=== PATIENT | male | born 1935 | race Caucasian/White ===

== ENCOUNTER 2016-11-23 01:45 | Day surgery (SDC) | payer MEDICARE, OTHER ==
[~2016-11-23] VITALS: Ht 182.9 cm; Wt 101.5 kg
[2016-11-23] VITALS (11 sets, daily range): BP systolic 124–157; BP diastolic 73–93; PULSE 50–92; RESP 13–24; O2SAT 94–98
[~2016-11-23 01:45] MED LIST: ALLO300T2 PO; ASPI-973 PO; ATOR40TA69 PO; CALC200T6 PO; CLOP75TA3 PO; ESOM20CA28 PO; EZET10TA PO; GLUC-123 PO; INSU100I18 SUBQ; INSU100V7 SUBQ; LISI-571 PO; MULT-666 PO; SOTA80TA PO; TAMS0.4C98 PO
[2016-11-23] MEDS: 0.9% Sodium Chloride 1,000 ML IV SCH ×4 (06:25→19:46)
[2016-11-23] MEDS ORDERED: CeFAZolin Inj 2 GM in IV Premix 1 EACH IV ONE (06:30)
[2016-11-23 06:46] LABS: BASOPHILS % (AUTO) 0.7 % (0-3); EOSINOPHILS % (AUTO) 3.7 % (0-5); Mean Corpuscular Hemoglobin 29.6 pg (27.0-35.0); Mean Corpuscular Volume 88.6 fL (81-100); NEUTROPHILS % (AUTO) 60.4 % (40-74); Platelet Count 155 bil/L (150-400)
--- NOTE | 2016-11-23 07:14 | NUR ---
0600 admit note: Patient ambulates into department with . Their questions are answered and he is prepped for pacemaker implant. IV's X 2 started and labs are drawn.
[2016-11-23 07:52] LABS: INR 0.97 ratio
[2016-11-23] MEDS ORDERED: Insulin LISPRO 300 Unit/3 mL Inj SUBQ SCH (08:00)
[2016-11-23] MEDS ORDERED: Heparin 5,000 Units/500 mL NS Premix IV ONE (08:00)
[2016-11-23] MEDS ORDERED: 0.9% Sodium Chloride 250 ML ONE (08:00)
[2016-11-23] MEDS ORDERED: Bupivacaine-MPF 0.5% 30 mL Inj ONE (08:00)
[2016-11-23] MEDS ORDERED: fentaNYL-PF 50 mCg/mL 2 mL Inj ONE (08:14)
[2016-11-23] MEDS ORDERED: Ondansetron 2 mg/mL 2 mL Inj IVPUSH PRN (09:50)
--- NOTE | 2016-11-23 10:27 | OP ---
[address] [address] OPERATIVE REPORT PATIENT: MAGNO BERMUDEZ : 1935 MR#: [id number] ADMIT: 11/23/2016 JOB ID: [id number] DATE OF SURGERY: 11/23/2016 PREOPERATIVE DIAGNOSIS(ES): Sick sinus syndrome. POSTOPERATIVE DIAGNOSIS(ES): Sick sinus syndrome. PROCEDURE: 1. Dual-chamber pacemaker implantation. 2. Fluoroscopy. SURGEON: Norman Lau MD, electrophysiology attending. ASSISTANTS: Claribel Florez MD, interventional cardiology attending, and Maxine Sarah. IMPLANTED DEVICES: 1. [employer] pulse generator model TO0070, serial #[id number]. 2. Right atrial lead [employer] 2088TC, 52 cm, serial #[id number]. 3. RV lead [employer] 2088TC, 58 cm, serial #[id number]. ANESTHESIA: Bolus dosing of Versed and fentanyl were utilized for an appropriate level of sedation. INDICATION: The patient is a pleasant 81-year-old man with coronary artery disease, preserved LV function, paroxysmal atrial fibrillation and sick sinus syndrome. After discussion of risks and benefits of pacemaker implantation, he opted to proceed. PROCEDURAL DESCRIPTION: Following informed signed consent, the patient was taken to the EP laboratory in a fasting, nonsedated state, where he was prepped and draped in the usual sterile fashion. The left infraclavicular region was infiltrated with 40 cc of a 50/50 mixture of bupivacaine and lidocaine. Once adequate anesthesia had been achieved, a 3 cm transverse incision was performed 2 cm below the left clavicle. Dissection was carried down to the pectoralis fascia and a pocket was then fashioned using a combination of electrocautery and blunt dissection. Once adequate hemostasis had been achieved, access to the left axillary vein was gotten with a micropuncture needle over the first rib twice to deploy two 0.035, 3-mm J-guidewires. Over the first of these, a 6-Slovenian tear-away sheath was advanced. Once the guidewire was removed, an active fixation lead was advanced to the RV outflow tract and ultimately the RV apex. The lead was affixed in position using associated active fixation screw. It was connected to the external analyzer and demonstrated appropriately sensed R waves, impedance, capture threshold. The lead was checked to 10 V, and there was no active no evidence of diaphragmatic stimulation. Attention was now paid to placement of the right atrial lead. Over the other previously deployed J-guidewire, another 6-Slovenian tear-away sheath was advanced. Once the guidewire was removed, an active fixation lead was advanced to the right atrial appendage. It was affixed in position using associated active fixation screw. The lead was connected to the external analyzer and demonstrated appropriately sensed P waves, impedance, capture threshold. Lead was checked to 10 V, and there was no evidence of diaphragmatic stimulation. Once the position and redundancy of both leads were confirmed with multiple fluoroscopic views, the leads were anchored to the prepectoralis fascia using their associated anchoring sleeves and 2-0 Ethibond sutures. The pocket was then copiously irrigated with antibiotic solution. The leads were connected to a generator. The generator was placed in the pocket. It was affixed to the floor of the pocket using 1-0 Ti-Cron suture. The incision was then closed with running layers of absorbable suture. The wound was dressed with skin adhesive and a small dressing. At the end the procedure, the needle, sponge, instrument counts were all correct. COMPLICATIONS: None. ESTIMATED BLOOD LOSS: Negligible. DEVICE MEASURED DATA: 1. Right atrial lead 4 mV, 440 ohms, 0.75 V at 0.4 msec. 2. RV lead 10 mV, 590 ohms, 0.5 V at 0.4 msec. FINAL PROGRAM PARAMETERS: DDDR 60 to 130 beats per minute with VIP on. IMPRESSION: Successful dual-chamber pacemaker implantation. PLAN: 1. Stat portable chest x-ray. 2. PA and lateral chest x-ray in the morning. 3. Device interrogation in the morning. 4. IV Ancef through tomorrow. 5. Keflex x7 days starting tomorrow. 6. Wound check in one week. ATTENDING STATEMENT: Norman Lau MD, electrophysiology attending, was present for and supervised/performed all aspects of this procedure.
[2016-11-23] MEDS: HYDROcodone-APAP 5-325 mg Tablet PO PRN ×3 (11:25→21:28)
--- NOTE | 2016-11-23 12:27 | NUR ---
Post pacemaker implant: Patient returned from [employer] at 1025. Site is dry and ice pack applied. He has c/o of increased ache to pacer site and received pain med as ordered. Monitor has displayed 100% atrially paced activity. Up to BR to void without problem.
--- NOTE | 2016-11-23 15:21 | DRSVH ---
PROCEDURE: X-RAY CHEST ONE VIEW, PORTABLE ([id number]) INDICATIONS: For new leads placed TECHNIQUE: One view of the chest was acquired. COMPARISON: [facility], CR, XR CHEST 1VW (PORTABLE), 02/25/2016, 12:05. FINDINGS: Surgical changes and devices: Dual-chamber lead cardiac pacer is in place in expected position. Lungs and pleura: No pleural effusions or pneumothorax. Lungs are clear. Mediastinum: Mediastinal contours appear normal. Heart size is normal. Large hiatal hernia redemon strated. Bones and chest wall: No suspicious bony lesions. Overlying soft tissues appear unremarkable. IMPRESSION: No immediate complications status post cardiac pacemaker placement. Dictated by: Solomon Alvarez RRMarva Interpreted: Sonam Overton MD on 11/23/2016 at 15:20 Transcribed by: RAEGAN on 11/23/2016 at 15:20 Approved by: Sonam Overton M.D. on 11/23/2016 at 16:25
[2016-11-23] MEDS: CeFAZolin Inj 1 GM in IV Premix 1 EACH IV SCH ×2 (16:30→23:57)
--- NOTE | 2016-11-23 17:49 | NUR ---
transfer post pacemaker placement pt is in a L shoulder immobilizer with Ancef hanging to gravity. tele is started on patient and IV NS started at 100. pt denies pain/distress. oriented to room, bed, and call light. pt agrees to call for assistance even though he states that he can get up by himself.
[2016-11-23] MEDS: INSULIN GLARGINE 100 UNIT/ML SUBQ SCH (21:00)
[2016-11-23] MEDS: Insulin LISPRO 300 Unit/3 mL Inj SUBQ SCH (21:17)
--- NOTE | 2016-11-23 21:49 | NUR ---
Medication Pt has been taking his own medication. Per pt's "Dr. Romano told me to take his own home medication". No insulin and home medication has been administered from the hospital. Charge nurse Ty Benitez notified.
[2016-11-23] MEDS ORDERED: Glucose 40% Oral Gel 15 Gm Tube PO PRN (23:10)
[2016-11-24 01:17] VITALS: BP 134/83; PULSE 73; RESP 18; O2SAT 95
[2016-11-24] MEDS: HYDROcodone-APAP 5-325 mg Tablet PO PRN (01:52)
[2016-11-24] MEDS: 0.9% Sodium Chloride 1,000 ML IV SCH ×3 (02:25→11:48)
--- NOTE | 2016-11-24 05:48 | NUR ---
Telemetry/Mild chest ache Pt complains of mild chest ache around the site. Educate pt post-op expectation pain, bruised, etc. Inspect site and noted bruised around dressings of site. Noted clean and dry, no hemorrhage or obvious bleeding observe around pacemaker dressing. Applied ice for 20-30 minutes. Q4 telemetry checks still on A-Paced on 70's. Will continue to monitor.
[2016-11-24 06:22] VITALS: BP 131/70; PULSE 60; RESP 18; O2SAT 97
[2016-11-24] MEDS ORDERED: Pantoprazole 20 mg ER24 Tablet PO SCH (06:30)
[2016-11-24] MEDS: Insulin LISPRO 300 Unit/3 mL Inj SUBQ SCH ×4 (08:00→11:46)
[2016-11-24] MEDS: INSULIN GLARGINE 100 UNIT/ML SUBQ SCH (08:18)
--- NOTE | 2016-11-24 08:39 | PCM.DIMED ---
Discharge Instructions Date of Service Nov 24, 2016 Dates of Hospitalization Discharge Diagnosis Discharge Diagnosis Sick Sinus Syndrome Marked sinus bradycardia Paroxysmal Atrial fibrillation Diabetes Hypertension Diet Heart Healthy, Diabetic Activity Other (Keep incision dry one day. Do not extend left elbow high above shoulder for one month. Do not lift, push or pull more than 10 lbs with the left arm for one month.) Call your provider Fever or Chills, Bleeding, Excessive diarrhea Patient Instructions Follow-up in: 1 week Mid-level Provider (F9): Cameron Callaway PA-C Follow-up with Mid-level in: 6 weeks Cameron Callaway PA-C Nov 24, 2016 08:39
[2016-11-24] MEDS ORDERED: CEPH500C PO (08:44)
[2016-11-24] MEDS ORDERED: HYDR-4003 PO (08:44)
--- NOTE | 2016-11-24 09:14 | NUR ---
Social Work-initial assessment/ discharge: Data:See initial assessment. pt is a 81 y/o male who was admitted for sick sinus syndrome per H&P. Pt's insurance is [employer] out of [facility] and PCP is Dk Trivedi MD. EMR reviewed. JUDI met with pt at bedside to discuss discharge planning, SW role explained. Pt is alert and oriented x3. Pt resides at home with his in [place] where he remains independent with ADls. Pt does not use any DME and drives. Pt has no HH Or SNF history. 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 SW discussed DPOA/ advanced directive, pt states he has completed this, SW encouraged pt to bring a copy into the hospital. Pt states his will provide transport home today. Per RN notes, pt has been up independent in his room. SW provided phone number on board and plan. No discharge needs identified. All updated and agreeable to plan. Assessment:Pt who is independent at baseline. Plan:Pt to discharge home today via POV. No discharge needs identified. All updated and agreeable to plan. EILEEN Grissom Addendum: 11/24/16 at 0917 by ALEX KUMAR Amended: Links added.
[2016-11-24 09:20] VITALS: BP 113/85; PULSE 110; RESP 18; O2SAT 96
--- NOTE | 2016-11-24 09:54 | DIS ---
[address] [address] DISCHARGE SUMMARY PATIENT: MAGNO BERMUDEZ : 1935 MR#: [id number] ADMIT: 11/23/2016 JOB ID: [id number] DIS: REASON FOR ADMISSION: Pacemaker implant. CHIEF COMPLAINT: Fatigue and lightheadedness. HISTORY: The patient is a pleasant 81-year-old man known to have coronary artery disease but preserved LV function, who now has recurrent highly symptomatic and drug refractory paroxysmal atrial fibrillation intermixed with marked sinus bradycardia. He has been treated with sotalol for atrial fib but this only made the bradycardia worse and the sotalol dose was reduced in half to 40 mg b.i.d. He still has breakthrough episodes of atrial fibrillation that may last 10 or 12 hours. With the episodes, he has profound fatigue, lightheadedness and chest discomfort but he denies syncope. He was advised of the benefits of a pacemaker to prevent the profound bradycardia and symptoms, and it would also allow a higher dose of sotalol to treat the atrial fibrillation. COURSE IN HOSPITAL: The patient was admitted through the [facility] and taken to the catheterization laboratory, where he received a dual-chamber pacemaker without incident. He was afterward transferred back to the [facility] for recovery from sedation and then taken up to the [facility] for overnight telemetry and monitoring. He did well overnight and in the morning was ambulatory without difficulty. His pacer site was closed and dry, and there was moderate hematoma and local ecchymosis. He was having some discomfort, and pain medication has been effective. The pacemaker evaluation shows good capture and sensing thresholds. He did go into atrial fibrillation this morning and his ventricular rates gradually increased over a few hours into the 120's-150's. When up to the bathroom and changing into street clothes , his rates went to 180-200 bpm. He had not received sotalol last night or this morning. An 80 mg oral dose was ordered and given. At 12:38 he converted to sinus rhythm with rate 74 bpm. Chest x-ray shows good lead positions and no pneumothorax. He felt well for discharge home. DISPOSITION: The patient was discharged home in good condition with a followup appointment at the [facility] Cardiology office in one week. He was asked not to get the incision wet for one day, and that he should not extend his left elbow high above his shoulder for one month, nor lift, push, or pull more than 10 pounds with the left arm for one month. He will follow his diabetic diet at home. DISCHARGE MEDICATIONS: 1. Cephalexin 500 mg b.i.d. for 1 week. 2. Hydrocodone/acetaminophen 5/325 mg 1 tablet q.4 h. p.r.n. pain, number of 14 tablets, with no refills. 3. Allopurinol 150 mg daily. 4. Aspirin 81 mg daily. 5. Atorvastatin 40 mg q.h.s. 6. Calcium citrate 200 mg daily. 7. Clopidogrel 75 mg each evening. 8. Nexium 20 mg daily. 9. Zetia 10 mg each evening. 10. Glucosamine tablets 1 b.i.d. 11. Insulin Lantus 30 units each evening. 12. Insulin Humalog as needed. 13. Lisinopril 5 mg q.h.s. 14. Multivitamin 1 daily. 15. Sotalol 80 mg b.i.d. 16. Tamsulosin 0.4 mg daily. FINAL DIAGNOSES: 1. Sick sinus syndrome. 2. Paroxysmal atrial fibrillation. 3. Marked sinus bradycardia. 4. Diabetes. 5. Hypertension. [facility]
--- NOTE | 2016-11-24 10:02 | DRSVH ---
PROCEDURE: X-RAY CHEST, TWO VIEWS ([id number]) INDICATIONS: For new lead placement TECHNIQUE: 2 views of the chest were acquired. COMPARISON: [facility], CR, XR CHEST 1VW (PORTABLE), 11/23/2016, 12:38. FINDINGS: Surgical changes and devices: Stable positioning of left chest cardiac pacer. Lungs and pleura: No pleural effusions or pneumothorax. Lungs are clear. Large hiatal hernia redem onstrated. Mediastinum: Mediastinal contours are normal. Heart size is normal. Bones and chest wall: No suspicious bony abnormalities. Soft tissues appear unremarkable. IMPRESSION: Stable chest post pacer placement. Dictated by: Solomon Alvarez RR Interpreted: Elizabeth Coronel MD on 11/24/2016 at 10:01 Transcribed by: TRAVIS on 11/24/2016 at 10:01 Approved by: Elizabeth Coronel MD, PhD on 11/24/2016 at 16:57
[2016-11-24 10:38] VITALS: PULSE 125
--- NOTE | 2016-11-24 11:03 | NUR ---
Telemetry: Notified by [employer] patient convert from Apaced to A fib 100s @ approx 0800. SUGAR Callaway from Cardiology, notified. Notified @ approx 100 that patient continues in A fib rate increasing to 130s-160s and patient also had approx 5beats of V tach. Patient had been up to BR. Cesia notified @ approx 1100. No new orders received as yet. Discussed with patient to continue bedrest. Patient agreed. Addendum: 11/24/16 at 1324 by DEBI TENA RN Order received to give home dose of Sotalol 80mg. Sotalol administered. Notified by [employer] that patient has converted to SR @ 1238, rate of 74 at time of phone call.
[2016-11-24 14:05] VITALS: BP 95/58; PULSE 74; RESP 18; O2SAT 94
--- NOTE | 2016-11-24 15:26 | NUR ---
Discharge: Patient discharged to home @ approx 1450. IV d/c'd intact, telemetry removed, procedure tech notified. Medications returned from pharmacy. Personal belongings sent home with patient. Reviewed two new prescriptions, home medications, discharge instructions, pacemaker care/restrictions and follow up appointments. Verbalized understanding. Patient escorted to main entrance via wheelchair accompanied by [employer] and .
== END 2016-11-24 14:52 | disposition home or self-care (01) ==
LOC: SOUO 01:45 → MPC 17:02 → SOUO 11-24 14:52
PROVIDERS: ATTEND Internal Medicine Cardiovascular Disease
DX: I49.5 Sick sinus syndrome (principal); I48.0 Paroxysmal atrial fibrillation; I25.10 Atherosclerotic heart disease of native coronary artery without angina pectoris; Z95.1 Presence of aortocoronary bypass graft; I10 Essential (primary) hypertension; E78.5 Hyperlipidemia, unspecified; Z79.899 Other long term (current) drug therapy; Z79.4 Long term (current) use of insulin; E11.9 Type 2 diabetes mellitus without complications; Z79.82 Long term (current) use of aspirin
CPT/HCPCS: 33208; 36415; 71010; 71020; 80048; 85025; 85610; 93005; 99152; 99153; C1769; C1785; C1892; C1898; J0690; J1644; J1815; J2250; J3010; J7030; J7050